=== PATIENT | female | born 1985 | race Caucasian/White ===

== ENCOUNTER → 2017-07-23 | Outpatient (REF) | payer OTHER | LOC: M LAB REF 17:10 | DX: Z34.83 Encounter for supervision of other normal pregnancy, third trimester (principal) ==

== ENCOUNTER 2017-08-06 05:33 | Inpatient (IN) | payer OTHER ==
[2017-08-06] MEDS: LR 1,000 ML IV ×5 (06:30→16:21)
[2017-08-06 08:14] LABS: HEMATOCRIT 34.5 % (36.0-47.0); HEMOGLOBIN 11.9 g/dl (12.0-16.0); MEAN CORPUSCULAR HEMOGLOBIN 27.7 pg (27.0-33.0); MEAN CORPUSCULAR HGB CONC 34.5 g/dl (32.0-36.5); MEAN CORPUSCULAR VOLUME 80.2 fl (80.0-96.0); PLATELET COUNT, AUTOMATED 180 10^3/uL (150-450); RED CELL DISTRIBUTION WIDTH 13.6 % (11.5-14.5); WHITE BLOOD COUNT 10.4 10^3/uL (4.0-10.0)
[2017-08-06] MEDS: BICITRA 30ML SOLN UDC PO (08:17)
[2017-08-06] MEDS ORDERED: RHOGAM 300 MCG (1500 IU) INJ (J2790) IM (08:30)
[2017-08-06] MEDS ORDERED: ONDANSETRON 4MG/2ML VIAL (J2405) IV ×2 (08:30→10:45)
[2017-08-06] MEDS ORDERED: PROMETHAZINE 25 MG TAB PO (08:30)
[2017-08-06] MEDS ORDERED: PERCOCET 5MG/325MG TAB PO ×2 (08:30→10:45)
[2017-08-06] MEDS ORDERED: MEASLES,MUMPS,RUBELLA VACCINE INJ (MMR-II) (90707) SC (08:30)
[2017-08-06] MEDS ORDERED: OXYTOCIN INJ 10 UNITS/ML VIAL (J2590) As Ordered ×3 (08:50)
[2017-08-06] MEDS ORDERED: ONDANSETRON 4MG/2ML VIAL (J2405) As Ordered (08:56)
[2017-08-06] MEDS ORDERED: MORPHINE PRES-FREE INJ 10 MG/10 ML VIAL (J2274) As Ordered (08:56)
[2017-08-06] MEDS ORDERED: ePHEDrine SULFATE 25 MG/5 ML(5MG/ML) SYRINGE As Ordered ×2 (08:56)
[2017-08-06] MEDS ORDERED: PHENYLephrine HCL 500 MCG/5 ML (100MCG/ML) SYRINGE (J2370) As Ordered (08:56)
[2017-08-06] MEDS ORDERED: MIDAZOLAM INJ 2 MG/2 ML VIAL (J2250) As Ordered ×2 (09:41→09:47)
[2017-08-06 09:50] LABS: CORD GAS ABE A -7.4; CORD GAS HCO3 A 20.6 MEQ/L; CORD GAS O2 SAT A 40.6 %; CORD GAS PCO2 A 50.8 mmHg; CORD GAS PH A 7.226 UNITS; CORD GAS PO2 A 21.8 mmHg; CORD GAS SBC A 17.3 MEQ/L; CORD GAS TCO2 A 22.2 MEQ/L
[2017-08-06] MEDS ORDERED: fentaNYL 100 MCG/2 ML INJECTION (J3010) As Ordered (10:35)
[2017-08-06] MEDS ORDERED: METOCLOPRAMIDE INJ 10MG/2ML VIAL (J2765) IV (10:45)
[2017-08-06] MEDS ORDERED: fentaNYL 100 MCG/2 ML INJECTION (J3010) IV (10:45)
[2017-08-06] MEDS ORDERED: MORPHINE 10 MG/ML 1ML VIAL (J2270) IV (10:45)
[2017-08-06] MEDS: PRENATAL VITAMINS CHEWABLE TABLET PO (11:46)
[2017-08-06] MEDS: DOCUSATE SODIUM 100 MG CAP PO ×2 (12:08→20:36)
[2017-08-06] MEDS: KETOROLAC 30 MG/ML VIAL (J1885) IV ×2 (12:24→18:07)
[2017-08-06] MEDS: PERCOCET 5MG/325MG TAB PO ×2 (15:42→20:36)
[2017-08-06] MEDS: NALBUPHINE HCL 10 MG/ML AMP (J2300) IV (15:42)
[2017-08-06] MEDS: HumuLIN N INSULIN (NovoLIN N) PER UNIT SC ×2 (18:08→21:00)
[2017-08-06] MEDS: HumuLIN R (REGULAR) INSULIN (NovoLIN R) **100U/ML** PER UNIT SC (20:38)
[2017-08-07] MEDS: KETOROLAC 30 MG/ML VIAL (J1885) IV ×2 (00:16→05:58)
[2017-08-07] MEDS: LR 1,000 ML IV (00:20)
[2017-08-07] MEDS: NALBUPHINE HCL 10 MG/ML AMP (J2300) IV (00:31)
[2017-08-07] MEDS: PERCOCET 5MG/325MG TAB PO ×3 (00:31→17:40)
[2017-08-07 07:11] LABS: HEMATOCRIT 31.4 % (36.0-47.0); HEMOGLOBIN 10.5 g/dl (12.0-16.0); MEAN CORPUSCULAR HEMOGLOBIN 27.3 pg (27.0-33.0); MEAN CORPUSCULAR HGB CONC 33.4 g/dl (32.0-36.5); MEAN CORPUSCULAR VOLUME 81.8 fl (80.0-96.0); PLATELET COUNT, AUTOMATED 162 10^3/uL (150-450); RED BLOOD COUNT 3.84 10^6/uL (4.00-5.40); RED CELL DISTRIBUTION WIDTH 13.6 % (11.5-14.5); WHITE BLOOD COUNT 10.8 10^3/uL (4.0-10.0)
[2017-08-07 07:32] LABS: ESTIMATED AVERAGE GLUCOSE 137 MG/DL (60-110); HEMOGLOBIN A1c 6.4 %
[2017-08-07] MEDS: DOCUSATE SODIUM 100 MG CAP PO ×2 (08:49→20:45)
[2017-08-07] MEDS: PRENATAL VITAMINS CHEWABLE TABLET PO (08:49)
[2017-08-07] MEDS: VENLAFAXINE **XR** 75MG CAPSULE PO (08:50)
[2017-08-07] MEDS: HumuLIN R (REGULAR) INSULIN (NovoLIN R) **100U/ML** PER UNIT SC ×2 (09:37→20:48)
[2017-08-07] MEDS: HumuLIN N INSULIN (NovoLIN N) PER UNIT SC ×2 (09:38→20:46)
[2017-08-07] MEDS: IBUPROFEN 800 MG TAB PO ×2 (14:50→22:00)
[2017-08-07] MEDS ORDERED: MOM 30ML SUSPENSION UDC PO (23:00)
[2017-08-08] MEDS: PERCOCET 5MG/325MG TAB PO ×2 (04:38→10:10)
[2017-08-08] MEDS: IBUPROFEN 800 MG TAB PO ×3 (06:00→21:00)
[2017-08-08] MEDS: DOCUSATE SODIUM 100 MG CAP PO ×2 (08:57→20:43)
[2017-08-08] MEDS: PRENATAL VITAMINS CHEWABLE TABLET PO (08:57)
[2017-08-08] MEDS: VENLAFAXINE **XR** 75MG CAPSULE PO (08:57)
[2017-08-08] MEDS: HumuLIN R (REGULAR) INSULIN (NovoLIN R) **100U/ML** PER UNIT SC ×2 (08:58→20:44)
[2017-08-08] MEDS: HumuLIN N INSULIN (NovoLIN N) PER UNIT SC ×2 (08:59→20:45)
[2017-08-08] MEDS: LABETALOL 200 MG TAB PO ×2 (09:00→20:43)
[2017-08-08 09:14] LABS: HEMATOCRIT 30.6 % (36.0-47.0); HEMOGLOBIN 10.1 g/dl (12.0-16.0); MEAN CORPUSCULAR HEMOGLOBIN 26.9 pg (27.0-33.0); MEAN CORPUSCULAR VOLUME 81.6 fl (80.0-96.0); PLATELET COUNT, AUTOMATED 178 10^3/uL (150-450); RED BLOOD COUNT 3.75 10^6/uL (4.00-5.40); RED CELL DISTRIBUTION WIDTH 13.7 % (11.5-14.5); WHITE BLOOD COUNT 10.7 10^3/uL (4.0-10.0)
[2017-08-08 09:41] LABS: ALBUMIN 2.4 GM/DL (3.2-5.2); ALBUMIN/GLOBULIN RATIO 0.77 (1.00-1.93); ALKALINE PHOSPHATASE 68 U/L (45-117); ALT/SGPT 18 U/L (12-78); ANION GAP 9 MEQ/L (8-16); AST/SGOT 30 U/L (7-37); BILIRUBIN,TOTAL 0.2 MG/DL (0.2-1.0); BLOOD UREA NITROGEN 9 MG/DL (7-18); CALCIUM LEVEL 7.9 MG/DL (8.5-10.1); CARBON DIOXIDE LEVEL 24 MEQ/L (21-32); CHLORIDE LEVEL 108 MEQ/L (98-107); CREATININE FOR GFR 0.52 MG/DL (0.55-1.30); GLOMERULAR FILTRATION RATE > 60.0 (>60); GLUCOSE, FASTING 153 MG/DL (70-100); LDH LACTATE DEHYDROGENASE 193 U/L (84-246); POTASSIUM SERUM 3.8 MEQ/L (3.5-5.1); SODIUM LEVEL 141 MEQ/L (136-145); TOTAL PROTEIN 5.5 GM/DL (6.4-8.2); URIC ACID 4.8 MG/DL (2.6-6.0)
[2017-08-08 09:43] LABS: TOTAL PROTEIN,RANDOM URINE 41.3 MG/DL (0.0-12.0)
[2017-08-09] MEDS: IBUPROFEN 800 MG TAB PO ×2 (05:03→13:57)
[2017-08-09] MEDS: DOCUSATE SODIUM 100 MG CAP PO (09:19)
[2017-08-09] MEDS: VENLAFAXINE **XR** 75MG CAPSULE PO (09:19)
[2017-08-09] MEDS: LABETALOL 200 MG TAB PO (09:20)
[2017-08-09] MEDS: PRENATAL VITAMINS CHEWABLE TABLET PO (09:20)
[2017-08-09] MEDS: HumuLIN N INSULIN (NovoLIN N) PER UNIT SC (09:31)
[2017-08-09] MEDS: HumuLIN R (REGULAR) INSULIN (NovoLIN R) **100U/ML** PER UNIT SC (09:34)
== END 2017-08-09 14:50 | disposition home or self-care (01) | DRG 540 ==
LOC: M LDI 05:33 → M OBS 12:20
PROVIDERS: Obstetrics & Gynecology
PROC: 10D00Z1 Extraction of Products of Conception, Low, Open Approach (ICD-10-PCS; principal; 2017-08-06 07:30)
PROC: 0UL70ZZ Occlusion of Bilateral Fallopian Tubes, Open Approach (ICD-10-PCS; 2017-08-06 07:30)
DX: O34.211 Maternal care for low transverse scar from previous cesarean delivery (principal); O24.12 Pre-existing type 2 diabetes mellitus, in childbirth; E66.01 Morbid (severe) obesity due to excess calories; Z68.42 Body mass index [BMI] 45.0-49.9, adult; Z37.0 Single live birth; Z3A.37 37 weeks gestation of pregnancy; Z79.4 Long term (current) use of insulin; E11.9 Type 2 diabetes mellitus without complications; Z30.2 Encounter for sterilization; O99.214 Obesity complicating childbirth